=== PATIENT | male | born 1965 | race Caucasian/White ===

== ENCOUNTER 2018-08-18 03:50 | Emergency (ER) | payer BC ==
[~2018-08-18] VITALS: Ht 180.3 cm; Wt 75.0 kg
[2018-08-18 04:01] VITALS: BP 114/68
[2018-08-18] MEDS ORDERED: LIDOCAINE-MPF 1%, 5ML ONE (04:05)
--- NOTE | 2018-08-18 04:15 | NUR ---
PT IN ROOM AT THIS TIME; DR MACEDO AT . PT EDUCATED ON ER PROCESS AND POC AND VERBALIZES UNDERSTANDING. CALL LIGHT IS WITHIN REACH.
[2018-08-18] MEDS ORDERED: DIPH,PERTUSS(ACELL),TET VAC/PF 0.5 ML IM-VACC ONE ×2 (04:30→04:35)
[2018-08-18] MEDS ORDERED: AMOXICILLIN/CLAV 875-125MG TABLET PO ONE (04:30)
[2018-08-18] MEDS ORDERED: LIDOCAINE-MPF 1%, 5ML INFIL ONE (04:30)
[2018-08-18] MEDS ORDERED: AMOXICILLIN/CLAV 875-125MG TABLET ONE (04:35)
[2018-08-18] MEDS ORDERED: BACITRACIN ZINC OINT 500U/GM, 0.9 GM ONE ×2 (04:43→04:53)
--- NOTE | 2018-08-18 04:59 | NUR ---
pt d/c with d/c summary and scripts. all questions answered. pt medicated per mar prior to d/c. pt denies any other needs pertaining to this visit.
== END 2018-08-18 05:01 | disposition home or self-care (01) ==
LOC: ED 04:40
DX: S61.451A Open bite of right hand, initial encounter (principal); S61.354A Open bite of right ring finger with damage to nail, initial encounter; Z87.891 Personal history of nicotine dependence; W54.0XXA Bitten by dog, initial encounter; Y93.89 Activity, other specified; Y92.89 Other specified places as the place of occurrence of the external cause; Y99.8 Other external cause status
CPT/HCPCS: 12042

== ENCOUNTER 2018-10-26 07:39 | Outpatient (CLI) | payer BC | END 2018-10-26 23:59 | disposition home or self-care (01) | LOC: CFH 07:39 | PROVIDERS: ATTEND Nurse Practitioner | DX: Z12.2 Encounter for screening for malignant neoplasm of respiratory organs (principal); J84.10 Pulmonary fibrosis, unspecified; M95.4 Acquired deformity of chest and rib; F17.220 Nicotine dependence, chewing tobacco, uncomplicated | CPT/HCPCS: G0297 ==

== ENCOUNTER 2020-05-05 11:05 | Emergency (ER) | payer BC, OTHER ==
[~2020-05-05] VITALS: Ht 180.3 cm; Wt 82.3 kg
[2020-05-05 11:18] VITALS: BP 136/82
[2020-05-05] MEDS ORDERED: PROPARACAINE OPHTH 0.5%, 15ML RIGHTEYE ONE (12:00)
[2020-05-05] MEDS ORDERED: FLUORESCEIN OPHTHALMIC 1 MG STRIP RIGHTEYE ONE (12:00)
== END 2020-05-05 12:12 | disposition home or self-care (01) ==
LOC: ED 11:50
DX: T15.01XA Foreign body in cornea, right eye, initial encounter (principal); Z87.891 Personal history of nicotine dependence; X58.XXXA Exposure to other specified factors, initial encounter; Y93.89 Activity, other specified; Y92.89 Other specified places as the place of occurrence of the external cause; Y99.8 Other external cause status
CPT/HCPCS: 99283